=== PATIENT | female | born 1965 | race Caucasian/White ===

== ENCOUNTER 2018-06-29 13:40 | Emergency (ER) | payer OTHER ==
[2018-06-29] MEDS ORDERED: ONDANSETRON 4 MG TAB.RAPDIS PO ONE (13:59)
[2018-06-29] MEDS ORDERED: OXYCODONE-ACETAMINOPHEN 5-325 MG TABLET PO ONE (13:59)
--- NOTE | 2018-06-29 14:01 | ER Document Report ---
ED Medical Screen (RME) - General Chief Complaint: Arm Injury Stated Complaint: WRIST INJURY Time Seen by Provider: 06/29/18 13:59 Mode of Arrival: Wheelchair Information source: Patient TRAVEL OUTSIDE OF THE [place] IN LAST 30 DAYS: No - HPI Patient complains to provider of: fall Onset: Just prior to arrival - pt fell earlier today on R wrist -- c/o pain and deformity - Related Data Allergies/Adverse Reactions: Sulfa (Sulfonamide Antibiotics) Allergy (Verified 06/29/18 13:54) Past Medical History - Social History Frequency of alcohol use: None Drug Abuse: None Renal/ Medical History: Denies: Hx Peritoneal Dialysis Physical Exam - Vital signs Vitals: Temp Pulse Resp BP Pulse Ox 97.7 F 61 18 90/85 L 100 06/29/18 13:47 06/29/18 13:47 06/29/18 13:47 06/29/18 13:47 06/29/18 13:47 Course - Vital Signs Vital signs: Temp Pulse Resp BP Pulse Ox 97.7 F 61 18 90/85 L 100 06/29/18 13:47 06/29/18 13:47 06/29/18 13:47 06/29/18 13:47 06/29/18 13:47
--- NOTE | 2018-06-29 14:39 | RADIOLOGY REPORT (SQ) ---
EXAM DESCRIPTION: WRIST RIGHT 3 VIEWS COMPLETED DATE/TIME: 06/29/2018 2:29 pm REASON FOR STUDY: fall COMPARISON: None. NUMBER OF VIEWS: Three views. TECHNIQUE: AP, lateral, and oblique radiographic images acquired of the right wrist. LIMITATIONS: None. FINDINGS: MINERALIZATION: Normal. BONES: There is a comminuted impaction type fracture of the distal radius and associated avulsion typ e fracture of the ulnar styloid process. SOFT TISSUES: There is associated soft tissue swelling OTHER: No other significant finding. IMPRESSION: Comminuted impaction type fracture of the distal radius and associated avulsion type fra cture of the ulnar styloid process. TECHNICAL DOCUMENTATION: JOB ID: [id number] [employer]- All Rights Reserved Reading location - IP/workstation name: [email or web address]
--- NOTE | 2018-06-29 14:55 | ER Document Report ---
ED Extremity Problem, Upper - General Chief Complaint: Arm Injury Stated Complaint: WRIST INJURY Time Seen by Provider: 06/29/18 13:59 Mode of Arrival: Wheelchair Information source: Patient TRAVEL OUTSIDE OF THE [place] IN LAST 30 DAYS: No - HPI Onset: Just prior to arrival Recent injury: No Where: Outdoors, Public place Quality of pain: Sharp Severity of pain: Severe, Constant Pain Level: 5 Context: Fall Associated symptoms: None Exacerbated by: Nothing Relieved by: Rest, Positioning Similar symptoms previously: No Recently seen / treated by doctor: No - Related Data Allergies/Adverse Reactions: Sulfa (Sulfonamide Antibiotics) Allergy (Verified 06/29/18 13:54) Past Medical History - General Information source: Patient - Social History Smoking Status: Never Smoker Frequency of alcohol use: None Drug Abuse: None Family History: None Patient has suicidal ideation: No Patient has homicidal ideation: No Renal/ Medical History: Denies: Hx Peritoneal Dialysis Review of Systems - Review of Systems Constitutional: denies: Chills, Fever EENT: No symptoms reported Cardiovascular: No symptoms reported Respiratory: No symptoms reported Gastrointestinal: No symptoms reported Genitourinary: No symptoms reported Female Genitourinary: No symptoms reported Musculoskeletal: Deformity, Other - Right wrist pain and swelling. Skin: No symptoms reported. denies: Lesions Hematologic/Lymphatic: No symptoms reported Neurological/Psychological: No symptoms reported -: Yes All other systems reviewed and negative Physical Exam - Vital signs Vitals: Temp Pulse Resp BP Pulse Ox 97.7 F 61 18 90/85 L 100 06/29/18 13:47 06/29/18 13:47 06/29/18 13:47 06/29/18 13:47 06/29/18 13:47 - General General appearance: Appears well, Alert In distress: Mild - HEENT Head: Normocephalic, Atraumatic Eyes: Normal Pupils: PERRL - Respiratory Respiratory status: No respiratory distress Chest status: Nontender Breath sounds: Normal Chest palpation: Normal - Cardiovascular Rhythm: Regular Heart sounds: Normal auscultation Murmur: No - Abdominal Inspection: Normal Distension: No distension Bowel sounds: Normal Tenderness: Nontender Organomegaly: No organomegaly - Back Back: Normal, Nontender - Extremities General upper extremity: Tender, Normal color General lower extremity: Normal inspection Shoulder: Normal Arm: Normal Elbow: Normal Forearm: Tender, Deformity. No: Abrasion Wrist: Tender, Deformity, Limited ROM. No: Abrasion Hand: Normal Hip: Normal Thigh: Normal Knee: Normal Ankle: Normal Foot: Normal - Neurological Neuro grossly intact: Yes Cognition: Normal Orientation: AAOx4 [place] Coma Scale Eye Opening: Spontaneous [place] Coma Scale Verbal: Oriented [place] Coma Scale Motor: Obeys Commands Rohan Coma Scale Total: 15 Speech: Normal Motor strength normal: LUE, RUE, LLE, RLE Sensory: Normal - Psychological Associated symptoms: Normal affect, Normal mood - Skin Skin Temperature: Warm Skin Moisture: Dry Skin Color: Normal Course - Vital Signs Vital signs: Temp Pulse Resp BP Pulse Ox 97.7 F 98 16 106/63 97 06/29/18 13:47 06/29/18 16:10 06/29/18 17:41 06/29/18 17:41 06/29/18 17:41 - Diagnostic Test Radiology reviewed: Reports reviewed - Transfer of Care Notes: 06/29/18 14:53 I consulted the orthopedic surgeon vision teacher Dr. Seth Freire. He recommend reducing the fracture and discharging the patient to follow up in his outpatient clinic tomorrow morning. 06/29/18 17:50 Procedures - Joint Reduction/Fracture Care Right Proximal Wrist Time completed: 16:25 Consent obtained: Yes Conscious sedation: Yes Pre-procedure NV exam: Yes Fracture: Closed Manipulation comment: Wrist fracture manipulated and reduced Post-procedure NV exam: Yes Post-reduction x-ray: Joint reduced Complications: No Critical Care Note - Critical Care Note Total time excluding time spent on procedures (mins): 45 Discharge - Discharge Clinical Impression: Distal radius fracture, right Qualifiers: Encounter type: initial encounter Fracture type: closed Fracture morphology: Colles' Qualified Code(s): S52.531A - Colles' fracture of right radius, initial encounter for closed fracture Closed fracture distal radius and ulna Qualifiers: Encounter type: initial encounter Laterality: right Qualified Code(s): S52.501A - Unspecified fracture of the lower end of right radius, initial encounter for closed fracture Condition: Stable Disposition: HOME, SELF-CARE Instructions: Fractured Radius ([facility]) Additional Instructions: Please follow-up with the orthopedic surgeon Dr. Seth Freire in his outpatient clinic tomorrow morning. Office phone number is [phone]. Return to the emergency room if condition worsens. Prescriptions: Hydrocodone/Acetaminophen [[place] 5-325 mg Tablet] 1 tab PO Q8 PRN #12 tablet PRN Reason: Severe Pain Ibuprofen [Motrin 600 Mg Tablet] 600 mg PO TID PRN #15 tablet PRN Reason: Mild to moderate Pain Referrals: SETH FREIRE DO [ACTIVE STAFF] - Follow up as needed
[2018-06-29] MEDS ORDERED: KETAMINE HCL INJ 500 MG/10 ML VIAL IV ONE ×2 (15:21→16:27)
[2018-06-29] MEDS ORDERED: LORAZEPAM INJ 2 MG/1 ML VIAL IV ONE (15:22)
--- NOTE | 2018-06-29 17:29 | RADIOLOGY REPORT (SQ) ---
EXAM DESCRIPTION: WRIST RIGHT 3 VIEWS COMPLETED DATE/TIME: 06/29/2018 4:47 pm REASON FOR STUDY: Post reduction COMPARISON: 06/29/2018 TECHNIQUE: AP and lateral views of the right wrist post reduction. LIMITATIONS: None. FINDINGS: There has been interval reduction of the previously described comminuted fracture of the d istal radius. Overlying cast is identified. IMPRESSION: Interval reduction as noted above TECHNICAL DOCUMENTATION: JOB ID: [id number] [employer]- All Rights Reserved Reading location - IP/workstation name: [email or web address]
[2018-06-29 18:08] VITALS: BP 106/63
== END 2018-06-29 18:19 | disposition home or self-care (01) ==
LOC: ER 13:40
DX: S52.531A Colles' fracture of right radius, initial encounter for closed fracture (principal); S52.611A Displaced fracture of right ulna styloid process, initial encounter for closed fracture; W19.XXXA Unspecified fall, initial encounter; Y92.838 Other recreation area as the place of occurrence of the external cause; Z88.2 Allergy status to sulfonamides
CPT/HCPCS: 99285; 99152; 96374; 73110; 25605; S0119; J3490; J2060